=== PATIENT | male | born 1960 | race Caucasian/White ===

== ENCOUNTER 2025-05-24 10:26 | Emergency (ER) | payer MEDICARE, OTHER ==
[2025-05-24] MEDS ORDERED: HYDROcodone/Acetaminophen 5/325 mg Tablet ONE (11:12)
== END 2025-05-24 11:24 | disposition home or self-care (01) ==
LOC: CSHERS 10:26
DX: K64.4 Residual hemorrhoidal skin tags (principal); I10 Essential (primary) hypertension
CPT/HCPCS: 99283